=== PATIENT | male | born 1955 | race Caucasian/White ===

== ENCOUNTER 2016-07-03 07:51 | Emergency (ER) | payer OTHER ==
--- NOTE | 2016-07-03 08:01 | CPEKG ---
Heart Rate: 65 RR Interval: 923 P-R Interval: 196 QRSD Interval: 84 QT Interval: 384 QTC Interval: 400 P [place]: 39 QRS [place]: 22 T Wave [place]: 32 EKG Severity - NORMAL ECG - EKG Impression: SINUS RHYTHM Electronically Signed By: Bety Matthews 03-Jul-2016 15:19:13
[2016-07-03] MEDS ORDERED: NS 1,000 ML IV ONE (08:10)
[2016-07-03] MEDS ORDERED: ASPIRIN 81 MG CHEWABLE TAB PO ONE (08:17)
--- NOTE | 2016-07-03 08:20 | EDPHY ---
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 The patient states he was hiking last Thursday when he developed left-sided chest pain. This was accompanied by left arm numbness and body numbness for few hours. His symptoms resolved. He had no shortness of breath, diaphoresis or nausea. On Thursday he was able to work out on a treadmill for 20 minutes with no symptoms. Since then he has had intermittent soreness to his left upper chest. It is not worse with movement or tender to palpation. No fevers or chills. No cough. No recent travel. No leg pain or swelling. REVIEW OF SYSTEMS: My complete review of systems is negative except as mentioned in the HPI. Past Medical/Surgical History: Includes hypertension, high cholesterol Past surgical history: Includes knee surgery, cervical fusion, finger surgery Social history: The patient is a hospital security officer. He does not smoke. Smoking Status: Never smoked Physical Exam: Vitals noted GENERAL: Well-appearing, in no acute distress, alert. HEENT: Eyes normal to inspection, normal pharynx. NECK: No thyromegaly, no lymphadenopathy, supple. RESPIRATORY: Clear to auscultation bilaterally, no rales, rhonchi or wheezing. CVS: Regular rate and rhythm, no rubs, murmurs, or gallops. ABDOMEN: Soft, nontender, nondistended, no organomegaly. BACK: Normal to inspection, no CVA tenderness. SKIN: Normal color, no rash, warm, dry. No pallor. EXTREMITIES: No pedal edema, no calf tenderness, no Homans sign or cords, no joint swelling. NEURO/PSYCH: Alert and oriented, normal mood and affect, normal motor sensory exam. Constitutional: Initial Vital Signs Temperature (C) 36.6 C 07/03/16 07:53 Heart Rate 70 07/03/16 07:53 Respiratory Rate 16 07/03/16 07:53 Blood Pressure 169/107 H 07/03/16 07:53 O2 Sat (%) 95 07/03/16 07:53 O2 Delivery Mode Room Air Allergies/Adverse Reactions: No Known Allergies Allergy (Unverified 06/26/14 11:14) Home Medications: Medication Instructions Recorded Losartan/Hydrochlorothiazide 1 each PO DAILY 06/20/14 [Losartan-Hctz 100-25 mg Tab] PARoxetine HCL [Paxil 10mg (RX)] 10 mg PO DAILY 06/20/14 Pravastatin Sodium 20 mg PO DAILY 06/20/14 Fluticasone Nasal [Flonase Nasal 1 sprays NASAL DAILY 06/26/14 Mena] Ibuprofen [Motrin (*)] 600 mg PO Q6 PRN 06/26/14 Tadalafil [Cialis] 5 mg PO DAILY PRN 06/26/14 Temazepam [Restoril 15 MG (*)] 15 mg PO HS PRN #7 cap 07/12/14 oxyCODONE IR [Oxycodone Ir (*)] 5 - 15 mg PO Q3 PRN #40 tab 07/12/14 Medical Decision Making ED Course/Re-evaluation: In the emergency department I discussed possible etiologies with the patient. An IV was placed. Laboratory studies, EKG and chest x-ray were ordered. The patient was given aspirin 324 mg orally. EKG shows normal sinus rhythm, normal rate, normal axis, normal intervals. There are no ST or T-wave abnormalities. EKG is normal as interpreted by me. Patient's troponin and laboratory studies were unremarkable. Chest x-ray was normal for acute disease. I discussed the result with the patient answered all his questions. I discussed the case with Cardiology. Cardiology states they will see if they can schedule him for stress test today. They will call me back [phone]: Cardiology re-paged to determine disposition. On discussion, the patient will undergo stress testing at noon. It was requested the patient's stay in the emergency department until stress testing. 1017: I discussed the plan with the patient. I answered all his questions. He was chest pain-free. Rechecked the patient on numerous occasions. He was stable during his stay. 1255: I discussed the case with Dr. Gross. The nuclear study did not show any acute ischemia. I paged Cardiology. I discussed case with Cardiology. They felt the patient could be discharged home. Stress test was negative. I discussed the results with the patient and answered all his questions. He will follow up with [facility] and Dr. Jefferson. Differential Diagnosis: My differential includes but is not limited to ACS, acute LA, dissection, aneurysm, pulmonary embolus, pneumonia, pneumothorax, musculoskeletal strain - Data Points Laboratory Results: Laboratory Results 07/03/16 08:07 07/03/16 08:07 07/03/16 08:07 WBC 5.35 10^3/uL (3.80-9.50) RBC 5.53 10^6/uL (4.40-6.38) Hgb 16.6 g/dL (13.7-17.5) Hct 49.3 % (40.0-51.0) MCV 89.2 fL (81.5-99.8) MCH 30.0 pg (27.9-34.1) MCHC 33.7 g/dL (32.4-36.7) RDW 13.2 % (11.5-15.2) Plt Count 231 10^3/uL (150-400) MPV 9.4 fL (8.7-11.7) Neut % (Auto) 60.1 % (39.3-74.2) Lymph % (Auto) 27.9 % (15.0-45.0) [place] % (Auto) 10.1 % (4.5-13.0) Eos % (Auto) 0.9 % (0.6-7.6) Baso % (Auto) 0.6 % (0.3-1.7) Nucleat RBC Rel Count 0.0 % (0.0-0.2) Absolute Neuts (auto) 3.22 10^3/uL (1.70-6.50) Absolute Lymphs (auto) 1.49 10^3/uL (1.00-3.00) Absolute Monos (auto) 0.54 10^3/uL (0.30-0.80) Absolute Eos (auto) 0.05 10^3/uL (0.03-0.40) Absolute Basos (auto) 0.03 10^3/uL (0.02-0.10) Absolute Nucleated RBC 0.00 10^3/uL (0-0.01) Immature Gran % 0.4 % (0.0-1.1) Immature Gran # 0.02 10^3/uL (0.00-0.10) D-Dimer 0.36 ug/mLFEU (0.00-0.50) Sodium 141 mEq/L (134-144) Potassium 4.0 mEq/L (3.5-5.2) Chloride 101 mEq/L (97-110) Carbon Dioxide 28 mEq/l (22-31) Anion Gap 12 mEq/L (8-16) BUN 24 H mg/dL (7-23) Creatinine 1.3 mg/dL (0.7-1.3) Estimated GFR 57 Glucose 100 mg/dL (70-100) Calcium 9.3 mg/dL (8.5-10.4) Troponin I 0.013 ng/mL (0-0.034) Medications Given: Discontinued Medications Aspirin (Aspirin) 324 mg PO EDNOW ONE Stop: 07/03/16 08:18 Last Admin: 07/03/16 08:30 Dose: 324 mg Departure - Departure Disposition: Home, Routine, Self-Care Clinical Impression: Chest pain Qualifiers: Chest pain type: precordial pain Qualifier Code: (R07.2) Precordial pain Condition: Good Instructions: Chest Pain (ED) Additional Instructions: Return with increasing chest pain, shortness of breath, leg pain or any other concerns. Your stress test was normal per Cardiology. Referrals: Compa Jefferson MD [Primary Care Provider] - 5-7 days, call for appt. [facility] [Provider Group] - 5-7 days, call for appt.
[2016-07-03 08:26] LABS: % IMMATURE GRANULYOCYTES 0.4 % (0.0-1.1); ABSOLUTE IMMATURE GRANULOCYTES 0.02 10^3/uL (0.00-0.10); ADD DIFF? NO; ADD MORPH? NO; ADD SCAN? NO; ATYPICAL LYMPHOCYTE FLAG 0 (0-99); FRAGMENT RBC FLAG 20 (0-99); HEMATOCRIT 49.3 % (40.0-51.0); HEMOGLOBIN 16.6 g/dL (13.7-17.5); LEFT SHIFT FLG 0 (0-99); LIPEMIA HEMOLYSIS FLAG 80 (0-99); MEAN CELL HEMOGLOBIN CONCENTR. 33.7 g/dL (32.4-36.7); MEAN CELL VOLUME 89.2 fL (81.5-99.8); MEAN PLATELET VOLUME 9.4 fL (8.7-11.7); PLATELET CLUMPS FLAG 10 (0-99); PLATELET COUNT 231 10^3/uL (150-400); RED BLOOD CELL COUNT 5.53 10^6/uL (4.40-6.38); RED CELL DISTRIBUTION WIDTH 13.2 % (11.5-15.2)
[2016-07-03 08:32] LABS: ANION GAP 12 mEq/L (8-16); CALCIUM 9.3 mg/dL (8.5-10.4); CARBON DIOXIDE 28 mEq/l (22-31); CHLORIDE 101 mEq/L (97-110); CREATININE 1.3 mg/dL (0.7-1.3); GLOMERULAR FILTRATION RATE 57; GLUCOSE 100 mg/dL (70-100); SODIUM 141 mEq/L (134-144)
[2016-07-03 08:44] LABS: TROPONIN I 0.013 ng/mL (0-0.034)
--- NOTE | 2016-07-03 09:53 | DX ---
PA Upright and Lateral Views of the Chest, at 7:58 a.m. Clinical History: 60-year-old male with chest pain for 6 days. The patient denies a cough or fever. COMPARISON STUDY: Chest, dated June 14, 2014. FINDINGS: Telemetry monitoring lead lines are present. The cardiac and mediastinal silhouette is norm al. There is no focal infiltrate, atelectasis, pleural effusion, peripheral interstitial edema, or pn eumothorax. There are degenerative features of the spine, with old mild ventral wedging concavities a t T8 and T12. There is a mild residual deformity at the site of an old left third anterior rib fractu re site. IMPRESSION: No acute abnormality, or substantial change from June 14, 2014.
--- NOTE | 2016-07-03 12:02 | PDCONSULT ---
Mailing Jogger Note: cardiac stress test with nuclear imaging CAR Stress Test Results Type of Stress Test: Nuclear TM stress test Indication: cp Description of Procedure: After informed consent was obtained, pt was established to ECG, BP, HR, and oximetry monitoring. At b/l, pt has SR, BP 122/ 80, HR 77, and O2 sat 99%RA. Pt exercised for a total of 9 minutes on the David protocol stress test. ECG changes were wnl for exercise. Pt experienced no CP. There were occasional PACs during stress test and in recovery. Peak HR was 148 bpm, which is 91% of max predicted HR for age. Peak BP was 170/90. Impression: DTS +9 (low risk). - No ischemia, no cp with exertion, and no arrhythmias. BP response normal for exercise. Oximetry normal throughout testing. Conclusion: Await nuclear images.
[2016-07-03 13:05] VITALS: BP 120/82; TEMP 98.1
[2016-07-03 13:28] VITALS: PULSE 73; RESP 16; O2SAT 94
--- NOTE | 2016-07-03 14:06 | NM ---
Nuclear Medicine Myocardial Perfusion Stress and Rest Imaging History: Chest pain. Comparison: None available. Technique: Rest imaging performed with the intravenous administration of 13.2 mCi of technetium 99 m labeled sestamibi on July 03, 2016 at 1054. Stress imaging performed with the intravenous admini stration of 28.6 mCi of technetium 99m labeled sestamibi on July 03, 2016 at 1208. Resting heart r ate was 77 and exercise stage 2 was attained, which achieved a maximum heart rate of 148 and 91% of m aximum predicted. Images are reviewed on the independent nuclear medicine work station, computer lisa lysis is performed. Findings: The left ventricular ejection fraction is 65%. There is a tiny fixed apical perfusion de fect, which could be related to thinning or infarct, with no evidence of ischemia. No focal wall jose on abnormalities. Impression: 1. Normal left ventricular ejection fraction of 65%. 2. No evidence of ischemia, with a tiny apical infarct versus more likely apical thinning. 3. No focal wall motion abnormalities. Findings discussed with Bety Matthews today at 1253 hours.
== END 2016-07-03 13:26 | disposition home or self-care (01) ==
DX: R07.2 Precordial pain (principal); I10 Essential (primary) hypertension
CPT/HCPCS: 71020; 78452; 93005; 93017; 99285; A9500

== ENCOUNTER → 2016-07-29 | Outpatient (CLI) | payer OTHER ==
--- NOTE | 2016-07-29 08:37 | US ---
Ultrasound Venous Duplex Doppler - Bilateral Legs at 0 757 hours History: Bilateral lower extremity edema Findings: Ultrasound venous Duplex and Doppler imaging of the bilateral common femoral veins, femora l veins, popliteal veins, calf veins, and greater saphenous vein origins demonstrates normal deacon sibility, Duplex color-flow, Doppler flow without deep venous thrombosis. Impression: No deep venous thrombosis bilateral legs.
== END ==
LOC: BMCIMAGING 07:44
PROVIDERS: ATTEND Internal Medicine
DX: R60.9 Edema, unspecified (principal)

== ENCOUNTER → 2018-05-23 | Outpatient (CLI) | payer OTHER | LOC: FIMAGING 14:13 | PROVIDERS: ATTEND Orthopaedic Surgery | DX: S46.011A Strain of muscle(s) and tendon(s) of the rotator cuff of right shoulder, initial encounter (principal); M75.21 Bicipital tendinitis, right shoulder; M19.011 Primary osteoarthritis, right shoulder ==

== ENCOUNTER 2018-10-11 05:35 | Observation (INO) | payer OTHER ==
[2018-10-11] MEDS ORDERED: ceFAZolin 2 GM/DEXTROSE 100 ML IV ONE (05:43)
[2018-10-11] MEDS ORDERED: LR 1,000 ML IV ONE (05:45)
[2018-10-11] MEDS ORDERED: ROPIVACAINE 0.2% 80 MG, EPINEPHrine 0.2 MG, KETOROLAC TROMETHAMINE 30 MG in SYRINGE 0 ML IU ONE (06:00)
[2018-10-11] MEDS ORDERED: BUPIVACAINE/EPI 0.5% 30 ML SDV ONE (06:44)
[2018-10-11] MEDS ORDERED: POLYMYXIN B SULFATE 500,000 UNIT/10 ML SYR IRR ONE (06:45)
[2018-10-11] MEDS ORDERED: BACITRACIN 50,000 UNITS/10 ML SYR IRR ONE (06:45)
--- NOTE | 2018-10-11 06:46 | PDANEPAE ---
ANE History of Present Illness right shoulder djd, here for total shoulder ANE Past Medical History - Cardiovascular History Hx Hypertension: Yes Hx Arrhythmias: No Hx Chest Pain: No Hx Coronary Artery / Peripheral Vascular Disease: No Hx CHF / Valvular Disease: No Hx Palpitations: No - Pulmonary History Hx COPD: No Hx Asthma/Reactive Airway Disease: No Hx Recent Upper Respiratory Infection: No Hx Oxygen in Use at Home: No Hx Sleep Apnea: Yes Sleep Apnea Screening Result - Last Documented: Positive Pulmonary History Comment: cuong positive uses cpap - Neurologic History Hx Cerebrovascular Accident: No Hx Seizures: No Hx Dementia: No - Endocrine History Hx Diabetes: No - Renal History Hx Renal Disorders: No - Liver History Hx Hepatic Disorders: No - Neurological & Psychiatric Hx Hx Neurological and Psychiatric Disorders: No - Cancer History Hx Cancer: Yes Cancer History Comment: Basal cell-removed. - Congenital Disorder History Hx Congenital Disorders: No - GI History Hx Gastrointestinal Disorders: Yes Gastrointestinal History Comment: IBS distant past. - Other Health History Other Health History: wears contacts - Chronic Pain History Chronic Pain: Yes (right shoulder) - Surgical History Prior Surgeries: left TKA with René 07/10/14. right shoulder scope 2017. 1975-ORIF R ankle. 1982-R knee scope. 6 L knee scopes. 1986- C spine disc repair. Bilateral shoulder scopes. 2006-ORIF L index finger. ANE Review of Systems Review of Systems: - Exercise capacity METS (RN): 4 METS ANE Patient History - Allergies Allergies/Adverse Reactions: No Known Allergies Allergy (Verified 10/01/18 09:23) - Home Medications Home Medications: Losartan/Hydrochlorothiazide [Losartan-Hctz 100-25 mg Tab] 06/20/14 [Last Taken 10/10/18] PARoxetine HCL [Paxil 10mg (RX)] 06/20/14 [Last Taken 10/10/18] Pravastatin Sodium 06/20/14 [Last Taken 10/10/18] Herbals/Supplements -Info Only 10/01/18 [Last Taken 10/10/18] Vitamin C 10/11/18 [Last Taken 10/11/18 04:45] - NPO status NPO Since - Liquids (Date): 10/11/18 NPO Since - Liquids (Time): 00:01 NPO Since - Solids (Date): 10/10/18 NPO Since - Solids (Time): 20:00 - Smoking Hx Smoking Status: Current some day smoker - Family Anes Hx Family Hx Anesthesia Complications: none ANE Labs/Vital Signs - Vital Signs Blood Pressure: 157/115 Heart Rate: 71 Respiratory Rate: 16 O2 Sat (%): 95 Height: 182.88 cm Weight: 122.47 kg ANE Physical Exam - Airway Neck exam: FROM, increased neck circumference, short neck Mallampati Score: Class 3 Mouth exam: normal dental/mouth exam - Pulmonary Pulmonary: no respiratory distress, no rales or rhonchi - Cardiovascular Cardiovascular: regular rate and rhythym, no murmur, rub, or gallop - ASA Status ASA Status: III ANE Anesthesia Plan Anesthesia Plan: general endotracheal anesthesia, GA w LMA Regional Anesthesia: single shot NB Total IV Anesthesia: No
[2018-10-11] MEDS ORDERED: EPINEPHrine 1 MG/ML INJ ONE (06:51)
[2018-10-11] MEDS ORDERED: MIDAZOLAM 2 MG/2 ML VIAL IVP ONE (07:02)
--- NOTE | 2018-10-11 07:02 | PDHPUP ---
History & Physical Update H&P update statement: This history and physical update is based on an assessment of the patient which was completed after admission or registration (within 24 hours), but prior to the surgery/procedure. H&P update: H&P reviewed & patient examined, no change in patient's condition since H&P completed
[2018-10-11] MEDS ORDERED: MIDAZOLAM 2 MG/2 ML VIAL ONE (07:04)
[2018-10-11] MEDS ORDERED: ROCURONIUM 100 MG/10 ML VIAL ONE (07:10)
[2018-10-11] MEDS ORDERED: PROPOFOL 200 MG/20 ML VIAL ONE (07:10)
[2018-10-11] MEDS ORDERED: fentaNYL 100 MCG/2 ML INJ ONE ×3 (07:10→11:27)
[2018-10-11] MEDS ORDERED: ONDANSETRON 4 MG/2 ML VIAL ONE (07:10)
[2018-10-11] MEDS ORDERED: SUGAMMADEX SODIUM 200 MG/2 ML VIAL IVP ONE (07:10)
[2018-10-11] MEDS ORDERED: LIDOCAINE 2% 100 MG/5 ML SYR ONE (07:10)
[2018-10-11] MEDS ORDERED: DEXAMETHASONE 4 MG/ML VIAL ONE (07:10)
[2018-10-11] MEDS ORDERED: METOPROLOL TARTRATE 5 MG/5 ML INJ ONE (07:42)
[2018-10-11] MEDS ORDERED: KETOROLAC 30 MG/1 ML SDV ONE (07:42)
[2018-10-11] MEDS ORDERED: PHENYLEPHRINE HCL 100 MCG/ML SYR ONE (07:42)
[2018-10-11] MEDS ORDERED: ACETAMINOPHEN 500 MG TAB PO PRN (11:18)
[2018-10-11] MEDS ORDERED: HYDROmorphONE/DILAUDID 1 MG/ML INJ IVP PRN (11:18)
[2018-10-11] MEDS ORDERED: DIAZEPAM 10 MG/2 ML SYR IVP PRN (11:18)
[2018-10-11] MEDS ORDERED: LR 500 ML IV PRN (11:18)
[2018-10-11] MEDS ORDERED: MEPERIDINE 25 MG/0.5 ML AMP IVP PRN (11:18)
[2018-10-11] MEDS ORDERED: PROMETHAZINE HCL 25 MG/ML INJ IVP PRN (11:18)
[2018-10-11] MEDS ORDERED: oxyCODONE IR 5 MG TAB PO PRN (11:18)
[2018-10-11] MEDS ORDERED: NALOXONE HCL 0.4 MG/ML INJ IVP PRN (11:18)
[2018-10-11] MEDS ORDERED: fentaNYL 100 MCG/2 ML INJ IVP PRN (11:18)
--- NOTE | 2018-10-11 11:48 | POSTANESTH ---
Post Anesthetic Evaluation Cardiovascular Status: Normal, Stable Respiratory Status: Normal, Stable Level of Consciousness/Mental Status: Can Participate in Eval, Mildly Sleepy, Arousable Pain Control: Adequate, Prn Tx Ordered Nausea/Vomiting Control: Adequate, Prn Tx Ordered Complications Possibly Related to Anesthesia: None Noted
[2018-10-11] MEDS ORDERED: ONDANSETRON 4 MG/2 ML VIAL IVP PRN (11:49)
--- NOTE | 2018-10-11 11:56 | SOAPPROG ---
SOAP Progress Note Assessment/Plan: Assessment/Plan: 62y/o male s/p right TSA - stable and doing well - post-op xrays pending - sling at all times - [facility] care - call with issues or concerns - meets inpatient criteria, obesity, severe osteoarthritis, hypertension, TSA 10/11/18 11:54 Subjective: No pain Objective: Vital Signs Temp Pulse Resp BP Pulse Ox 37.0 C 71 16 157/115 H 95 10/11/18 06:00 10/11/18 07:01 10/11/18 07:01 10/11/18 07:01 10/11/18 07:01 NAD, waking from anesthesia, no distress right shoulder incision clean, dressed ICD10 Worksheet Patient Problems: Problems Problem Status Onset Primary localized osteoarthrosis, lower leg Chronic
--- NOTE | 2018-10-11 12:54 | GOP ---
[f rep st] OPERATIVE REPORT DATE OF OPERATION: 10/11/2018 SURGEON: Ariana Merritt MD MAGNETIC DOCTOR: Elise Johnson, MG ANESTHESIA: General with interscalene block. PREOPERATIVE DIAGNOSIS: Severe osteoarthritis, right shoulder. POSTOPERATIVE DIAGNOSIS: Severe osteoarthritis, right shoulder. PROCEDURE PERFORMED: Right total shoulder arthroplasty with soft tissue biceps tenodesis. FINDINGS: Preoperative x-rays of the patient's right shoulder demonstrated severe osteoarthritis. A t this time of surgery, this finding was confirmed. The patient had complete loss of the articular c artilage on the humeral head and the glenoid. An Arthrex total shoulder arthroplasty was performed. A 9 mm apex humeral stem was press-fit into place and a 48 x 17 humeral head was placed on the taper of the stem. A large glenoid component was cemented into place on the glenoid side. Following impl antation of the components. The shoulder was taken through range of motion and the patient had excel lent stability with appropriate internal and external rotation, as well as overhead elevation. The b iceps tendon was tenodesed to the upper border of the pectoralis using #2 FiberWire. ESTIMATED BLOOD LOSS: 200 cc. DESCRIPTION OF PROCEDURE: The patient was taken to the operating room, placed in supine position on the operating table. Following induction of adequate general and interscalene anesthesia, the should er and arm were prepped and draped in the usual sterile manner. The patient received 3 g of IV Ancef . A deltopectoral incision was made extending from the clavicle across the coracoid into the axillary f olds. Incision was carried down through the subcutaneous tissue to the deltopectoral interval. The deltoid was mobilized laterally with the cephalic vein. The coracoid musculature was retracted media lly. The clavipectoral fascia was incised. A [place] type self-retaining retractor was inserted, and then, the subscapularis was identified. The bicipital groove was incised and the soft tissue tenode sis was performed at the upper border of the pectoralis. The vascular bundle inferior to the subscap ularis was ligated. The subscapularis was then peeled off the lesser tuberosity using the Bovie. It was tagged and retracted medially. The arm was externally rotated and the humeral head was brought into the wound. Extensive capsular r eleases were performed. The inferior capsule was released around to approximately 7 o'clock. The la rge osteophyte around the periphery of the humeral head was removed. The cutting guide was then util ized to determine the appropriate humeral head cut and then the cut was made. The humerus was prepared next. The starter reamer was inserted, and then, the humerus was reamed up to a size 9. The 7, 8, 9 broaches were utilized. A good fit was noted with the size 9 broach. The broach was then removed and the trial component was inserted with the protector plate on the cut surf alejandra of the humerus. Our attention was then turned to the glenoid. Igor retractor was used to retract the humerus out of the out of the way inferiorly and posteriorly, and again, additional soft tissue releases were perfo rmed. The labrum was removed from around the periphery of the joint. An anterior retractor was plac ed along the anterior glenoid and retractors placed superiorly as well. The rotator cuff was protect ed throughout the procedure. The center of the glenoid was determined, and then, the glenoid was siz ed and the starter pin was inserted in the center of the glenoid. The drill was used over the pin, a nd then, the superior drill hole was made and the inferior VaultLock was also drilled out. The Vault Lock was further cleared with the impactor. A trial reduction was then performed. The size large gl enoid component fit nicely. The bony surfaces were thoroughly irrigated and dried, and then, an epin ephrine-soaked sponge was placed in the holes in the glenoid. The glenoid component was opened and the cement was mixed. The glenoid was cemented into place and h eld while the cement hardened. Excess cement was removed from around the edges of the component. On ce this was cement was hard, the humerus was delivered back into the wound and the trial component wa s removed. The stem was opened and impacted with the FiberWire attached to the stem. Two drill hole s were placed in the bicipital groove and some of the FiberWires were pulled through these 2 drill ho les. The FiberWires were attached to the stem were used to repair the subscapularis. The wound was thoroughly irrigated out and the head was placed on the taper of the stem. A 48 mm x 17 concentric h umeral head was utilized. An excellent fit was obtained. The shoulder was reduced, and then, the fischer bscapularis was repaired. Again, the deep and superficial portions of the wound were injected with joint cocktail. The subcuta neous tissue was closed using 2-0 Vicryl, and the skin was closed using joleen. Sterile dressings w ere applied. The patient tolerated the procedure well, and there were no complications. Estimated b lood loss minimal. Final sponge, needle counts were correct. The patient was transported to the [facility] overy room in good condition. /[id number]/MODL
[2018-10-11] MEDS: OXYCODONE/APAP 5/325 TAB PO PRN ×3 (14:29→22:08)
--- NOTE | 2018-10-11 14:45 | SOAPPROG ---
SOAP Progress Note Assessment/Plan: Assessment: s/p right TSA- procedure earlier this morning Plan: Begin d/c planning - likely going home tomorrow. Does not have support at home, unless his daughter comes to his home on the weekends (she is an orthopedic nurse) PT/OT - He can take the arm out of the sling to perform elbow ROM; while in sling with abduction pillow, he is to keep the arm in a position of abduction Continue oral pain medication 10/11/18 14:51 Subjective: Patient states his right shoulder is sore, but the pain is tolerable. He is left hand dominant. He is planning on going home and denies having support at home. He denies shortness of breath, chest pain, numbness or tingling in the right upper extremity. Objective: Vital Signs Temp Pulse Resp BP Pulse Ox 36.3 C 87 17 126/79 H 93 10/11/18 14:24 10/11/18 14:24 10/11/18 14:24 10/11/18 14:24 10/11/18 14:24 10/10/18 10/11/18 10/12/18 05:59 05:59 05:59 Intake Total 2024 Output Total 450 Balance 1575 Patient resting in bed, no acute distress. His daughter is present in the room. RUE: Surgical wound dressing is clean, dry and intact. Sling with abduction pillow is in place. Mild edema distally in fingers. He can actively move all fingers. Grossly NVI distally. ICD10 Worksheet Patient Problems: Problems Problem Status Onset Primary localized osteoarthrosis, lower leg Chronic
--- NOTE | 2018-10-11 14:48 | POSTOPPROG ---
Post Op Note Date of Operation: 10/11/18 Surgeon: Ariana Merritt Shoe Lay Out Planner: Elise Johnson PA-C Anesthesiologist: Dr. Allison Kendrick Anesthesia: GET(General Endotracheal) Pre-op Diagnosis: right shoulder osteoarthritis Post-op Diagnosis: right shoulder osteoarthritis Indication: right shoulder pain Procedure: right TSA Inf/Abcess present in the surg proc area at time of surgery?: No EBL: 50-100 Complications: none
[2018-10-11] MEDS: ceFAZolin 2 GM/DEXTROSE 100 ML IV SCH ×2 (15:54→23:45)
[2018-10-12] MEDS: OXYCODONE/APAP 5/325 TAB PO PRN ×3 (01:48→09:11)
[2018-10-12 07:22] VITALS: BP 140/82
[2018-10-12] MEDS ORDERED: PRAVASTATIN SODIUM 20 MG TAB PO SCH (09:00)
[2018-10-12] MEDS ORDERED: PARoxetine HCL 10 MG TAB PO SCH (09:00)
[2018-10-12] MEDS ORDERED: LOSARTAN/HCTZ 50/12.5 1 TAB PO SCH (09:00)
[2018-10-12] MEDS ORDERED: CYCLOBENZAPRINE 10 MG TAB PO PRN (09:18)
--- NOTE | 2018-10-12 09:38 | SOAPPROG ---
SOAP Progress Note Assessment/Plan: Assessment: s/p right TSA- POD 1 Plan: Continue d/c planning - likely going home today. Does not have support at home, unless his daughter comes to his home on the weekends (she is an orthopedic nurse) PT/OT - He can take the arm out of the sling to perform elbow ROM; while in sling with abduction pillow, he is to keep the arm in a position of abduction Continue oral pain medication Flexeril ordered for muscle spasms Subjective: Patient states his right shoulder is throbbing and burning a bit more today, but pain has been tolerable. He has noticed some spasms in the right shoulder. He does not like taking the oxycodone because it makes him sleepy, therefore he is going to try and only take it at night. He is hoping to go home today. Patient denies SOB, CP, fever, chills, nausea. Objective: Vital Signs Temp Pulse Resp BP Pulse Ox 36.9 C 75 14 140/82 H 99 10/12/18 07:21 10/12/18 07:21 10/12/18 07:21 10/12/18 07:21 10/12/18 07:21 10/11/18 10/12/18 10/13/18 05:59 05:59 05:59 Intake Total 3325 Output Total 2400 Balance 925 Patient resting comfortably in bed, no acute distress. RUE: Sling with abduction pillow is in place. Skin is intact. Surgical wound dressings are clean , dry and intact. He can actively form a fist, extend fingers, abduct and adduct fingers. Grossly NVI distally. ICD10 Worksheet Patient Problems: Problems Problem Status Onset Primary localized osteoarthrosis, lower leg Chronic
[2018-10-12] MEDS ORDERED: traMADol 50 MG TAB PO PRN (11:21)
[2018-10-12] MEDS ORDERED: oxyCODONE IR 5 MG TAB PO PRN (11:22)
[2018-10-12] MEDS ORDERED: BISACODYL 10 MG SUPP PR PRN (11:23)
[2018-10-12] MEDS ORDERED: POLYETHYLENE GLYCOL 3350 17 GM PKT PO PRN (11:23)
[2018-10-12] MEDS ORDERED: LACTULOSE 20 GM/30 ML UDCUP PO PRN (11:23)
[2018-10-12] MEDS ORDERED: MAGNESIUM HYDROXIDE 30 ML UDCUP PO PRN (11:23)
--- NOTE | 2018-10-12 12:38 | SOAPPROG ---
SOAP Progress Note Assessment/Plan: Assessment/Plan: 62y/o male s/p right TSA POD#1 - stable and doing well, pain well controlled with Tylenol and occasional Oxycodone - post-op xrays stable - sling at all times, ok for passive elbow flexion/extension - polar care - patient ready for discharge home today, discussed return precautions; follow- up 10/25, sooner with any issues or changes 10/12/18 12:35 Subjective: Pain well controlled. Doing well. Eating, drinking, voiding. Feels ready to go home Objective: Vital Signs Temp Pulse Resp BP Pulse Ox 36.9 C 75 14 140/82 H 99 10/12/18 07:21 10/12/18 07:21 10/12/18 07:21 10/12/18 07:21 10/12/18 07:21 10/11/18 10/12/18 10/13/18 05:59 05:59 05:59 Intake Total 3325 Output Total 2400 Balance 925 NAD, well appearing, no distress EOMi, face symmetric incision clean, dressed wiggles fingers well, neurovascularly grossly intact ICD10 Worksheet Patient Problems: Problems Problem Status Onset Primary osteoarthritis, right shoulder Acute Primary localized osteoarthrosis, lower leg Chronic
[2018-10-12] MEDS ORDERED: ACETAMINOPHEN 500 MG TAB PO SCH (14:00)
[2018-10-12] MEDS ORDERED: SENNOSIDES/DOCUSATE SODIUM TAB PO SCH (21:00)
== END 2018-10-12 14:22 | disposition home or self-care (01) ==
LOC: FSGY 05:35 → F3N 11:49 → INTOOBSV 11:49 → F3N 13:13
PROVIDERS: ADMIT Orthopaedic Surgery; ATTEND Orthopaedic Surgery
PROC: 0RRJ0J6 Replacement of Right Shoulder Joint with Synthetic Substitute, Humeral Surface, Open Approach (ICD-10-PCS; principal; 2018-10-11 07:15)
PROC: 0RRJ0J7 Replacement of Right Shoulder Joint with Synthetic Substitute, Glenoid Surface, Open Approach (ICD-10-PCS; principal; 2018-10-11 07:15)
DX: M19.011 Primary osteoarthritis, right shoulder (principal)
CPT/HCPCS: 23472; 73030; 97161; 97165; G0378; C1713; J0171; J0690; J1100; J1885; J2001; J2250; J2370; J2405; J2704; J2795; J3010